=== PATIENT | male | born 1945 | race Caucasian/White ===

== ENCOUNTER 2017-09-23 09:13 | Observation (INO) | payer OTHER ==
[~2017-09-23] VITALS: Ht 172.7 cm; Wt 97.0 kg
[2017-09-23 09:45] LABS: HEMATOCRIT 43.3 % (38.0-50.0); HEMOGLOBIN 14.7 G/DL (12.5-16.6); MCH 29.9 PG (29.0-34.0); MCHC 33.9 G/DL (30.0-36.0); MCV 88.2 FL (86-99); PLATELET COUNT 169 K/uL (156-360); RBC DIS.WIDTH-CV 13.6 % (11.8-14.6); RBC DIS.WIDTH-SD 43.6 % (39-53); RED BLOOD COUNT 4.91 M/uL (4.00-5.50); WHITE BLOOD COUNT 9.1 K/uL (4.1-10.2)
[2017-09-23 09:56] LABS: CHLORIDE 104 mEq/L (99-109); POTASSIUM 5.1 mEq/L (3.7-5.4); SODIUM 140 mEq/L (136-147)
[2017-09-23 09:58] LABS: GLUCOSE 113 mg/dL (70-99)
[2017-09-23 10:02] LABS: CREATININE 1.4 mg/dL (0.6-1.3); GFR ESTIMATE (CALCULATED) 53 mL/min/ (58.99-99999)
[2017-09-23 10:03] LABS: UREA NITROGEN (BUN) 15 mg/dL (9-23)
[2017-09-23 10:05] LABS: INTER. NORMALIZED RATIO 1.1
[2017-09-23 10:06] LABS: TROP-I INTERPRETATION NEGATIVE; TROPONIN-I < 0.01 ng/mL (0.0-0.30)
[2017-09-23 10:07] LABS: PTT 28.6 SEC (25-37)
[2017-09-23] MEDS ORDERED: ALLOPURINOL100 MG PO (10:43)
[2017-09-23] MEDS ORDERED: PRAVASTATIN SOD40 MG PO (10:44)
[2017-09-23] MEDS ORDERED: BISOPROLOL-HCT1 EAC2 PO (10:44)
[2017-09-23] MEDS ORDERED: LEVOTHYROXINE75 MCG PO (10:44)
[2017-09-23] MEDS ORDERED: TART CHERRY CA1 EACH PO (10:47)
[2017-09-23] MEDS ORDERED: ONE-A-DAY MEN'1 EACH PO (10:47)
[2017-09-23] MEDS ORDERED: BENZONATATE200 MG PO (10:48)
[2017-09-23] MEDS ORDERED: LUMIGAN 0.50 DROP/22 BOTH EYES (10:50)
[2017-09-23 13:06] VITALS: BP 137/71
[2017-09-23 15:08] VITALS: BP 135/68
[2017-09-23 15:32] LABS: TROP-I INTERPRETATION NEGATIVE; TROPONIN-I < 0.01 ng/mL (0.0-0.30)
[2017-09-23 19:59] LABS: TROP-I INTERPRETATION NEGATIVE; TROPONIN-I < 0.01 ng/mL (0.0-0.30)
[2017-09-24 00:03] VITALS: BP 121/68
[2017-09-24 04:10] VITALS: BP 119/68
[2017-09-24 06:00] LABS: CHLORIDE 103 MEQ/L (99-109); CREATININE 1.2 MG/DL (0.6-1.3); GFR ESTIMATE (CALCULATED) > 59 mL/min/ (58.99-99999); GLUCOSE 106 mg/dL (70-99); SODIUM 137 MEQ/L (136-147); UREA NITROGEN (BUN) 17 mg/dL (9-23)
[2017-09-24 07:40] VITALS: BP 122/76
[2017-09-24 09:00] VITALS: BP 132/66
[2017-09-24 09:01] VITALS: BP 127/67
[2017-09-24 09:02] VITALS: BP 124/62
== END 2017-09-24 11:28 | disposition home or self-care (01) ==
LOC: EME → EDBD 09:13 → EME 09:13 → EDOF 11:20 → 4SOUTH 11:20 → EDOF 11:20 → ENRESERV 11:31 → 4SOUTH 12:54
PROVIDERS: Emergency Medicine; Internal Medicine; Physician Assistant Medical
DX: R55 Syncope and collapse (principal); I12.9 Hypertensive chronic kidney disease with stage 1 through stage 4 chronic kidney disease, or unspecified chronic kidney disease; N18.9 Chronic kidney disease, unspecified; E78.5 Hyperlipidemia, unspecified; E03.9 Hypothyroidism, unspecified; D35.2 Benign neoplasm of pituitary gland; Z88.2 Allergy status to sulfonamides
CPT/HCPCS: 71045; 80048; 82948; 83880; 84484; 85027; 85610; 85730; 93005; 99281; 99285; G0378; J1650; J7040

== ENCOUNTER 2017-10-22 19:14 | Emergency (ER) | payer OTHER ==
[~2017-10-22] VITALS: Ht 172.7 cm; Wt 98.0 kg
[~2017-10-22 19:14] MED LIST: ALLOPURINOL100 MG PO; BENZONATATE200 MG PO; BISOPROLOL-HCT1 EAC2 PO; LEVOTHYROXINE75 MCG PO; LUMIGAN 0.50 DROP/22 BOTH EYES; ONE-A-DAY MEN'1 EACH PO; PRAVASTATIN SOD40 MG PO; TART CHERRY CA1 EACH PO
[2017-10-22 19:55] LABS: HEMATOCRIT 39.7 % (38.0-50.0); HEMOGLOBIN 13.7 G/DL (12.5-16.6); MCH 30.6 PG (29.0-34.0); MCHC 34.5 G/DL (30.0-36.0); MCV 88.6 FL (86-99); PLATELET COUNT 176 K/uL (156-360); RBC DIS.WIDTH-CV 13.8 % (11.8-14.6); RBC DIS.WIDTH-SD 44.2 % (39-53); RED BLOOD COUNT 4.48 M/uL (4.00-5.50); WHITE BLOOD COUNT 7.2 K/uL (4.1-10.2)
[2017-10-22 20:03] LABS: CHLORIDE 108 mEq/L (99-109); POTASSIUM 4.8 mEq/L (3.7-5.4); SODIUM 143 mEq/L (136-147)
[2017-10-22 20:05] LABS: GLUCOSE 97 mg/dL (70-99)
[2017-10-22 20:09] LABS: CREATININE 1.7 mg/dL (0.6-1.3); GFR ESTIMATE (CALCULATED) 42 mL/min/ (58.99-99999)
[2017-10-22 20:10] LABS: UREA NITROGEN (BUN) 22 mg/dL (9-23)
[2017-10-23] MEDS ORDERED: IMODIUM A-D2 M2 PO (00:04)
[2017-10-23 00:34] VITALS: BP 137/79
== END 2017-10-23 00:35 | disposition home or self-care (01) ==
LOC: EME → EDBD 19:14 → EME 19:14
DX: R19.7 Diarrhea, unspecified (principal); R55 Syncope and collapse; N18.9 Chronic kidney disease, unspecified; Z88.2 Allergy status to sulfonamides; Z88.6 Allergy status to analgesic agent; Z88.1 Allergy status to other antibiotic agents
CPT/HCPCS: 80048; 85027; 93005; 99281; 99285